=== PATIENT | female | born 1980 | race Caucasian/White ===

== ENCOUNTER 2020-05-21 17:43 | Emergency (ER) | payer OTHER ==
[~2020-05-21] VITALS: Ht 160 cm; Wt 80.2 kg
[2020-05-21 19:34] LABS: BASO % 0.2 % (0.0-1.0); EOS # 0.4 10^3/uL (0.0-0.5); EOS % 2.5 % (0.0-3.0); HEMATOCRIT 44.3 % (36.0-47.0); HEMOGLOBIN 15.2 g/dl (12.0-15.5); LYMPH # 1.4 10^3/uL (1.5-5.0); LYMPH % 9.2 % (24.0-44.0); MEAN CORPUSCULAR HEMOGLOBIN 30.1 pg (27.0-33.0); MEAN CORPUSCULAR HGB CONC 34.3 g/dl (32.0-36.5); MEAN CORPUSCULAR VOLUME 87.7 fl (80.0-96.0); MONO % 6.3 % (2.0-8.0); NEUTROPHILS # 12.4 10^3/uL (1.5-8.5); PLATELET COUNT, AUTOMATED 262 10^3/uL (150-450); RED BLOOD COUNT 5.05 10^6/uL (4.00-5.40); WHITE BLOOD COUNT 15.3 10^3/uL (4.0-10.0)
[2020-05-21] MEDS ORDERED: diphenhydrAMINE 50MG/ML VIAL (J1200) IV STA (20:03)
[2020-05-21 20:05] LABS: ALBUMIN 3.9 GM/DL (3.2-5.2); BILIRUBIN,DIRECT 0.2 MG/DL (0.0-0.2); BILIRUBIN,TOTAL 0.4 MG/DL (0.2-1.0); TOTAL PROTEIN 7.7 GM/DL (6.4-8.2)
[2020-05-21] MEDS ORDERED: NS 1,000 ML IV ONE (20:05)
[2020-05-21] MEDS ORDERED: ISOVUE-370 76% 100ML VIAL As Ordered ONE (20:06)
--- NOTE | 2020-05-21 20:51 | REPVR ---
PROCEDURE INFORMATION: Exam: CT Abdomen And Pelvis With Contrast Exam date and time: 05/21/2020 8:09 PM Age: 39 years old Clinical indication: Nausea and vomiting; Additional info: N/v/d, lower abd pain TECHNIQUE: Imaging protocol: Computed tomography of the abdomen and pelvis with contrast. Radiation optimization: All CT scans at this facility use at least one of these dose optimization techniques: automated exposure control; mA and/or kV adjustment per patient size (includes targeted exams where dose is matched to clinical indication); or iterative reconstruction. Contrast material: ISOVUE 370; Contrast volume: 100 ml; Contrast route: INTRAVENOUS (IV); COMPARISON: No relevant prior studies available. FINDINGS: Liver: There is a diffuse decrease in hepatic parenchymal density, consistent with steatosis. Hepatomegaly. Gallbladder and bile ducts: There has been a cholecystectomy. Pancreas: Normal. No ductal dilation. Spleen: Normal. No splenomegaly. Adrenal glands: Normal. No mass. Kidneys and ureters: Normal. No hydronephrosis. Stomach and bowel: There is increased fluid demonstrated in the colon consistent with diarrhea. No mass demonstrated. Appendix: No evidence of appendicitis. Intraperitoneal space: Unremarkable. No free air. No significant fluid collection. Vasculature: Unremarkable. No abdominal aortic aneurysm. Lymph nodes: Unremarkable. No enlarged lymph nodes. Urinary bladder: Unremarkable as visualized. Reproductive: There has been a hysterectomy. Bones/joints: Unremarkable. No acute fracture. Soft tissues: Bilateral breast implants. IMPRESSION: 1. There is a diffuse decrease in hepatic parenchymal density, consistent with steatosis. Hepatomegaly. 2. There has been a cholecystectomy. 3. There has been a hysterectomy. 4. There is increased fluid demonstrated in the colon consistent with diarrhea. No mass demonstrated. Electronically signed by: Juan Yip On 05/21/2020 20:51:36 PM
[2020-05-21 22:33] VITALS: BP 139/87
== END 2020-05-21 22:38 | disposition home or self-care (01) ==
LOC: M ED 17:43
DX: R11.2 Nausea with vomiting, unspecified (principal); R19.7 Diarrhea, unspecified; R21 Rash and other nonspecific skin eruption; K76.89 Other specified diseases of liver; Z87.19 Personal history of other diseases of the digestive system; G35 Multiple sclerosis; Z90.49 Acquired absence of other specified parts of digestive tract; Z90.710 Acquired absence of both cervix and uterus
CPT/HCPCS: 74177; 80047; 80076; 83690; 84702; 85025; 87505; 96361; 96374; 99284; J1200; Q9967